=== PATIENT | female | born 1995 | race Asian ===

== ENCOUNTER 2016-09-16 20:14 | Emergency (ER) | payer OTHER ==
[~2016-09-16] VITALS: Ht 175.3 cm; Wt 82.9 kg
[2016-09-16 20:41] VITALS: Ht 175.3 cm; Wt 82.9 kg
[2016-09-16] MEDS ORDERED: ALBU8.5H3 INH (21:16)
[2016-09-16] MEDS ORDERED: IBUP-1542 PO (21:17)
[2016-09-16] MEDS ORDERED: NyQuil (21:28)
[2016-09-16] MEDS ORDERED: Mucinex (21:28)
--- NOTE | 2016-09-16 21:29 | ERD ---
ER Documentation Chief Complaint Date/Time DATE: 09/16/16 TIME: 21:27 Chief Complaint Flu like s/s since Thursday HPI 21-year-old female presents here in emergency department for complaints of cough , runny nose, nasal congestion for the last 3-4 days. Patient is denying dry cough, does not cough up any phlegm or blood. Patient does not have any shortness breath or wheezing. Patient coworker's were sick with the same symptoms. Patient does not have any chest pain or palpitations. Patient has been taking NyQuil and Mucinex to help with symptoms with mild relief. ROS All systems reviewed and are negative except as per history of present illness. Medications Home Meds Active Scripts Ibuprofen* (Motrin*) 600 Mg Tab, 600 MG PO Q6H Y for PAIN AND OR ELEVATED TEMP, #30 TAB Prov:TIFFANIE PERAZA NP 09/16/16 Albuterol Sulfate* (Proair HFA*) 8.5 Gm Hfa.aer.ad, 2 PUFF INH Q4H Y for WHEEZING AND SOB, #1 INHALER Prov:TIFFANIE PERAZA NP 09/16/16 Reported Medications [Mucinex] Unknown Strength No Conflict Check 09/16/16 [NyQuil] Unknown Strength No Conflict Check 09/16/16 Allergies Allergies: Coded Allergies: No Known Allergy (Unverified , 09/16/16) PMhx/Soc Medical and Surgical Hx: pt denies Medical Hx, pt denies Surgical Hx FmHx Family History: No coronary disease, No diabetes, No other Physical Exam Vitals Vital Signs Date Time Temp Pulse Resp B/P Pulse Ox O2 Delivery O2 Flow Rate FiO2 09/16/16 20:41 99.1 90 18 120/90 98 Physical Exam GENERAL: The patient is well developed and appropriate for usual state of health, in no apparent distress. HEENT: Atraumatic. Ears: Normal tympanic membrane, no erythema or bulging. No ear canal swelling. No ear discharge. Nose: Erythematous nasal turbinates with clear nasal discharge. Throat: oropharynx erythematous with postnasal drip. No tonsillar swelling or tonsillar exudates. No lymphadenopathy. CHEST: Clear to auscultation bilaterally. There are no rales, wheezes or rhonchi. HEART: Regular rate and rhythm. No murmurs, clicks, rubs or gallops. No S3 or S4. ABDOMEN: Soft, nontender and nondistended. Good bowel sounds. No rebound or guarding. No gross peritonitis. No gross organomegaly or masses. No Floyd sign or McBurney point tenderness. BACK: No midline or flank tenderness. EXTREMITIES: Equal pulses bilaterally. There is no peripheral clubbing, cyanosis or edema. No focal swelling or erythema. Full range of motion. Grossly neurovascularly intact. NEURO: Alert and oriented. Cranial nerves 2-12 intact. Motor strength in all 4 extremities with 5/5 strength. Sensation grossly intact. Normal speech and gait. SKIN: There is no apparent rash or petechia. The skin is warm and dry. HEMATOLOGIC AND LYMPHATIC: There is no evidence of excessive bruising or lymphedema. No gross cervical, axillary, or inguinal lymphadenopathy. Procedures/MDM Medical Decision Making: Patient symptoms are most likely consistent with acute bronchitis, which viral in origin. There is low suspicion for Pneumonia at this time since patients lungs sounds are clear, patient O2 saturation is normal and patient doesnt show any respiratory distress. Radiology exams no indicated at this time. There is low suspicion for other cardiopulmonary emergencies at this time such as CHF, Pulmonary Embolism, Pneumothorax, or any other cardiopulmonary emergencies at this time. There is low suspicion for sepsis. Patient appears well and is hemodynamically stable. Fever is controlled with medicines. Disposition: Home. Condition: Stable Prescriptions: Albuterol, ibuprofen, continue the Mucinex and NyQuil Instructions: Patient is advised to take medications as prescribed. Patient is advised to rest. Patient advised to increase fluid intake, do humidifier at home and if possible, do salt water gargles. Patient is advised that if symptoms are worse, shortness of breath, uncontrolled fever, stridor, vomiting, worst signs and symptoms to return to emergency department immediately. Otherwise, patient is advised to follow up with primary doctor in 5-7 days. Departure Diagnosis: Primary Impression: Acute bronchitis Bronchitis organism: unspecified organism Qualified Code: J20.9 - Acute bronchitis, unspecified organism Condition: Stable Patient Instructions: Bronchitis, No Antibiotic (Adult) TIFFANIE PERAZA NP Sep 16, 2016 21:29
== END 2016-09-16 21:18 | disposition home or self-care (01) ==
LOC: E/R 20:14
DX: J20.9 Acute bronchitis, unspecified (principal)
CPT/HCPCS: 99283